=== PATIENT | male | born 1970 | race African-American/Black ===

== ENCOUNTER 2024-05-06 15:28 | Inpatient (IN) | payer OTHER ==
[~2024-05-06] VITALS: Ht 180.3 cm; Wt 100.0 kg
[2024-05-06 15:30] VITALS: RESP 27
[2024-05-06] MEDS ORDERED: IPRATROPIUM BROMIDE (0.02%) 0.5MG/2.5ML NEB ONE (15:36)
[2024-05-06] MEDS: ALBUTEROL (0.5%) 2.5MG/0.5ML NEB HHN ONE (15:36)
[2024-05-06] MEDS: IPRATROPIUM BROMIDE (0.02%) 0.5MG/2.5ML NEB HHN STA (15:38)
[2024-05-06] MEDS: ALBUTEROL (0.083%) 2.5MG/3ML NEB HHN STA (15:38)
[2024-05-06] MEDS: METHYLPREDNISOLONE SOD SUCC 125MG/2ML (ACT-O-VIAL) IV STA (15:59)
[2024-05-06] MEDS: MAGNESIUM 2 G PREMIX 50 ML IV STA (15:59)
[2024-05-06] MEDS: SODIUM CHLORIDE 0.9% 1,000 ML IV ONE (16:00)
[2024-05-06 16:07] LABS: BASOPHILS % 0.5 % (0.0-2.0); EOSINOPHILS % 3.7 % (0.0-5.0); HEMATOCRIT. 46.2 % (42.0-52.0); HEMOGLOBIN. 14.8 g/dL (14.0-18.0); LYMPHOCYTES % 21.6 % (20.0-50.0); MEAN CORPUSCULAR HEMOGLOBIN 26.3 pg (28.0-32.0); MEAN CORPUSCULAR HGB CONC 31.9 g/dL (31.0-37.0); MEAN CORPUSCULAR VOLUME 82.4 fL (80.0-94.0); MEAN PLATELET VOLUME 7.5 fl (7.4-10.4); MONOCYTES % 8.3 % (2.0-8.0); NEUTROPHILS % 65.9 % (40.0-76.0); PLATELET 275 x1000/uL (130-400); RED CELL DISTRIBUTION WIDTH 14.5 % (11.6-14.6); WHITE BLOOD COUNT 11.8 x1000/uL (4.5-11.0)
[2024-05-06 16:13] LABS: CHLORIDE 106 mEq/L (98-107); POTASSIUM 4.3 mEq/L (3.5-5.1); SODIUM 139 mEq/L (136-145)
[2024-05-06 16:14] LABS: CARBON DIOXIDE 26 mEq/L (21-32)
[2024-05-06 16:15] LABS: CALCIUM 9.6 mg/dL (8.7-10.4)
[2024-05-06 16:19] LABS: CREATININE 1.1 mg/dL (0.6-1.3); GLUCOSE 128 mg/dL (70-105)
[2024-05-06 16:20] LABS: UREA NITROGEN BLOOD 15 mg/dL (9-23)
[2024-05-06 16:33] LABS: BG BASE EXCESS -1.8 mmol/L (-2.0-3.0); BG CARBOXYHEMOGLOBIN 0.2 % (0.5-1.5); BG DEOXYHEMOGLOBIN 0.3 % (0.0-5.0); BG FRACTION INSPIRED OXYGEN 100; BG HCO3 ACT 26.1 mmol/L (21.0-28.0); BG METHEMOGLOBIN 0.1 % (0.5-1.5); BG OXYGEN SATURATION 99.7 % (94.0-98.0); BG OXYHEMOGLOBIN 99.4 % (94.0-98.0); BG PCO2 57.3 mmHg (35.0-48.0); BG PH 7.277 (7.350-7.450); BG PO2 517.7 mmHg (83.0-108.0); BG SAMPLE SITE RIGHT RADIAL; BG TOTAL HEMOGLOBIN 15.6 g/dL (13.5-17.5); BG VENT MODE MASK - BIPAP
[2024-05-06 16:40] LABS: TROPONIN I HIGH SENSITIVITY < 4 ng/L (3.0-53)
[2024-05-06] MEDS: LABETALOL 5MG/ML 4ML INJ IV PRN (21:02)
[2024-05-06 23:09] LABS: TROPONIN I HIGH SENSITIVITY 33 ng/L (3.0-53)
[2024-05-06] MEDS: IPRATROPIUM/ALBUTEROL 0.5-3(2.5)MG/3ML NEB HHN ONE (23:15)
[2024-05-07] VITALS (7 sets, daily range): BP systolic 122; BP diastolic 56–74; PULSE 74–109; RESP 17–30; TEMP 36.78072–37.66968; O2SAT 95–100
[2024-05-07] MEDS ORDERED: MAGNESIUM/ALUMINUM HYDROXIDE/SIMETHICONE 30ML UDC PO PRN
[2024-05-07] MEDS ORDERED: ACETAMINOPHEN 325MG TABLET PO PRN ×2
[2024-05-07] MEDS ORDERED: LORAZEPAM 0.5MG TABLET PO PRN
[2024-05-07] MEDS ORDERED: GUAIFENESIN 200MG/10ML SUGAR FREE UDC PO PRN
[2024-05-07] MEDS ORDERED: IPRATROPIUM/ALBUTEROL 0.5-3(2.5)MG/3ML NEB HHN PRN
[2024-05-07] MEDS ORDERED: CEFTRIAXONE 1GM/50ML 50 ML IV SCH
[2024-05-07] MEDS ORDERED: HYDROCODONE/ACETAMINOPHEN 5/325MG TABLET PO PRN
[2024-05-07] MEDS ORDERED: DOCUSATE SODIUM 100MG CAPSULE PO PRN
[2024-05-07] MEDS ORDERED: ONDANSETRON HCL 4MG/2ML INJ IV PRN
[2024-05-07] MEDS: METHYLPREDNISOLONE SOD SUCC 125MG/2ML (ACT-O-VIAL) IV SCH ×2 (00:47→14:58)
[2024-05-07] MEDS ORDERED: AZITHROMYCIN 500 MG in DEXT 5% WATER 250 ML IV SCH (01:00)
[2024-05-07] MEDS: LEVOFLOXACIN 500MG PREMIX 100ML IV SCH (02:52)
[2024-05-07 05:07] LABS: HEMATOCRIT. 46.2 % (42.0-52.0); HEMOGLOBIN. 15.3 g/dL (14.0-18.0); MEAN CORPUSCULAR HEMOGLOBIN 26.8 pg (28.0-32.0); MEAN CORPUSCULAR HGB CONC 33.2 g/dL (31.0-37.0); MEAN CORPUSCULAR VOLUME 80.8 fL (80.0-94.0); MEAN PLATELET VOLUME 7.3 fl (7.4-10.4); PLATELET 275 x1000/uL (130-400); RED BLOOD CELL COUNT 5.72 mill/uL (4.7-6.1); RED CELL DISTRIBUTION WIDTH 14.3 % (11.6-14.6)
[2024-05-07 05:23] LABS: DIFFERENTIAL COMMENT 1
[2024-05-07 05:24] LABS: CREATINE KINASE MB FRACTION 35.3 ng/mL (0.5-3.6)
[2024-05-07 05:28] LABS: THYROID STIMULATING HORMONE 0.49 uIU/mL (0.55-4.78)
[2024-05-07] MEDS: BUDESONIDE 0.5MG/2ML NEB HHN SCH (06:16)
[2024-05-07 07:33] LABS: ATYPICAL LYMPHOCYTES 1
[2024-05-07 07:34] LABS: PLATELET ESTIMATE NORMAL
[2024-05-07] MEDS: CLONIDINE 0.1MG TABLET PO PRN (07:45)
[2024-05-07 08:57] LABS: BG BASE EXCESS 2.7 mmol/L (-2.0-3.0); BG CARBOXYHEMOGLOBIN 0.2 % (0.5-1.5); BG DEOXYHEMOGLOBIN 0.3 % (0.0-5.0); BG FRACTION INSPIRED OXYGEN 100; BG HCO3 ACT 29.1 mmol/L (21.0-28.0); BG METHEMOGLOBIN 0.4 % (0.5-1.5); BG OXYGEN SATURATION 99.7 % (94.0-98.0); BG OXYHEMOGLOBIN 99.1 % (94.0-98.0); BG PCO2 51.2 mmHg (35.0-48.0); BG PH 7.372 (7.350-7.450); BG PO2 391.2 mmHg (83.0-108.0); BG SAMPLE SITE LEFT RADIAL; BG TOTAL HEMOGLOBIN 15.8 g/dL (13.5-17.5); BG TOTAL RESPIRATORY RATE 27 b/min; BG VENT MODE MASK - BIPAP
[2024-05-07] MEDS ORDERED: METHYLPREDNISOLONE SOD SUCC 125MG/2ML (ACT-O-VIAL) IV SCH (09:00)
[2024-05-07] MEDS: ENOXAPARIN 30MG/0.3ML SYR SUBCUT SCH (09:39)
[2024-05-07] MEDS: IPRATROPIUM/ALBUTEROL 0.5-3(2.5)MG/3ML NEB HHN SCH (09:45)
[2024-05-07] MEDS: FLUTICASONE PROPIONATE 50MCG/SPRAY BOTTLE BOTHNSTRLS SCH (10:17)
[2024-05-07] MEDS ORDERED: BENZONATATE 100MG CAPSULE PO PRN (11:45)
[2024-05-07 12:16] LABS: BG BASE EXCESS 2.1 mmol/L (-2.0-3.0); BG CARBOXYHEMOGLOBIN 0.7 % (0.5-1.5); BG FRACTION INSPIRED OXYGEN 28; BG HCO3 ACT 26.4 mmol/L (21.0-28.0); BG METHEMOGLOBIN 0.1 % (0.5-1.5); BG OXYHEMOGLOBIN 97.2 % (94.0-98.0); BG PCO2 40.2 mmHg (35.0-48.0); BG PH 7.436 (7.350-7.450); BG PO2 95.8 mmHg (83.0-108.0); BG SAMPLE SITE RIGHT RADIAL; BG TOTAL HEMOGLOBIN 15.6 g/dL (13.5-17.5); BG VENT MODE NASAL CANNULA
[2024-05-07] MEDS: SODIUM CHLORIDE 0.9% 1,000 ML IV SCH (13:52)
[2024-05-07 16:59] LABS: CREATINE KINASE MB FRACTION 34.6 ng/mL (0.5-3.6)
[2024-05-08] VITALS (10 sets, daily range): BP systolic 115–133; BP diastolic 56–75; PULSE 73–106; RESP 17–20; TEMP 36.55848–36.89184; O2SAT 97–99
[2024-05-08 04:40] LABS: CHLORIDE 105 mEq/L (98-107); POTASSIUM 4.4 mEq/L (3.5-5.1); SODIUM 140 mEq/L (136-145)
[2024-05-08 04:41] LABS: CARBON DIOXIDE 30 mEq/L (21-32)
[2024-05-08 04:42] LABS: CALCIUM 9.1 mg/dL (8.7-10.4)
[2024-05-08 04:45] LABS: HEMATOCRIT. 40.4 % (42.0-52.0); HEMOGLOBIN. 13.4 g/dL (14.0-18.0); MEAN CORPUSCULAR HEMOGLOBIN 27.2 pg (28.0-32.0); MEAN CORPUSCULAR HGB CONC 33.1 g/dL (31.0-37.0); MEAN PLATELET VOLUME 7.4 fl (7.4-10.4); PLATELET 235 x1000/uL (130-400); RED BLOOD CELL COUNT 4.93 mill/uL (4.7-6.1); RED CELL DISTRIBUTION WIDTH 14.1 % (11.6-14.6); WHITE BLOOD COUNT 16.1 x1000/uL (4.5-11.0)
[2024-05-08 04:46] LABS: CREATININE 0.9 mg/dL (0.6-1.3)
[2024-05-08 04:47] LABS: GLUCOSE 153 mg/dL (70-105); UREA NITROGEN BLOOD 15 mg/dL (9-23)
[2024-05-08 04:48] LABS: CREATINE KINASE 674 IU/L (46-171)
[2024-05-08 07:30] LABS: DIFFERENTIAL COMMENT 1
[2024-05-08] MEDS ORDERED: FAMO20TA8 MT (15:15)
[2024-05-08] MEDS ORDERED: LORA5SOL33 MT (15:15)
[2024-05-08] MEDS ORDERED: P20 MT (15:15)
[2024-05-08] MEDS ORDERED: ALBU18HF2 IH (15:15)
[2024-05-08 16:06] LABS: ANISOCYTOSIS 1+; PLATELET ESTIMATE NORMAL
[2024-05-09] MEDS ORDERED: PREDNISONE 20MG TABLET PO SCH (09:00)
== END 2024-05-08 16:20 | disposition home or self-care (01) | DRG 202 ==
LOC: ER 15:28 → EDBEDREQ 17:31 → EDBEDREQTM 17:31 → EDBEDREQSVC 05-07 01:47 → 5WST 05-07 10:51
PROVIDERS: ADMIT Internal Medicine; ATTEND Internal Medicine
PROC: 5A09357 Assistance with Respiratory Ventilation, Less than 24 Consecutive Hours, Continuous Positive Airway Pressure (ICD-10-PCS; principal; 2024-05-06)
DX: J45.901 Unspecified asthma with (acute) exacerbation (principal); J96.02 Acute respiratory failure with hypercapnia; M62.82 Rhabdomyolysis; T38.0X5A Adverse effect of glucocorticoids and synthetic analogues, initial encounter; D72.829 Elevated white blood cell count, unspecified; R73.9 Hyperglycemia, unspecified; I16.0 Hypertensive urgency; Z88.0 Allergy status to penicillin; Y92.89 Other specified places as the place of occurrence of the external cause
CPT/HCPCS: 36415; 36600; 71045; 80048; 80061; 82375; 82550; 82553; 82805; 84443; 84484; 85025; 93005; 93970; 94070; 94640; 94660; 94664; 98960; 99291; J0456; J1650; J1956; J2919; J3475; J3490; J7030; J7060; J7626